=== PATIENT | female | born 1990 | race Caucasian/White ===

== ENCOUNTER 2016-08-28 06:01 | Inpatient (IN) | payer MEDICAID ==
[~2016-08-28] VITALS: Ht 165.1 cm; Wt 78.5 kg
[2016-08-28] VITALS (15 sets, daily range): BP systolic 107–122; RESP 16–20; TEMP 97.3–98.1; Ht 165.1 cm; Wt 78.5 kg
[~2016-08-28 06:01] MED LIST: CEFAZOLIN (LD/OB) 100 ML IV ONE; FAMOTIDINE 20 MG INJ IV ONE; LIDOCAINE 1% BUFFERED 1 ML SYR INTRADERM PRN; METOCLOPRAMIDE 10 MG/2 ML VIAL IV PUSH ONE
[2016-08-28] MEDS ORDERED: [UNRECOGNIZED DRUG - REMARK] XX SCH (06:35)
[2016-08-28] MEDS ORDERED: ONDANSETRON 4 MG VIAL IV PRN ×3 (07:10→08:10)
[2016-08-28] MEDS ORDERED: BUTORPHANOL 1 MG/ML VIAL IV PRN (07:10)
[2016-08-28] MEDS ORDERED: NALOXONE 0.4 MG/ML AMP IV PRN (07:10)
[2016-08-28] MEDS ORDERED: MEPERIDINE 25 MG/ML IV PRN (07:10)
[2016-08-28] MEDS ORDERED: DIPHENHYDRAMINE 50 MG/ML VIAL IV PRN (07:10)
[2016-08-28] MEDS ORDERED: SALINE FLUSH 10 ML FLUSH PRN (07:10)
[2016-08-28] MEDS ORDERED: MORPHINE 2 MG/ML SYR IV PRN ×2 (07:10)
[2016-08-28] MEDS ORDERED: MORPHINE 4 MG/ML SYR IV PRN ×2 (07:10)
[2016-08-28] MEDS ORDERED: OXYCODONE 5 MG TAB PO PRN (07:10)
[2016-08-28] MEDS ORDERED: PROMETHAZINE 25 MG/ML VIAL IV PRN (07:10)
[2016-08-28] MEDS ORDERED: DILAUDID 1 MG/ML AMP IV PRN (07:10)
[2016-08-28] MEDS ORDERED: OXYTOCIN 10 UNITS/ML VIAL IV ONE (07:46)
[2016-08-28] MEDS ORDERED: PHENYLEPHRINE 10 MG/ML VIAL IV ONE (07:46)
[2016-08-28] MEDS: SALINE FLUSH 10 ML FLUSH SCH ×2 (08:00→20:00)
[2016-08-28] MEDS ORDERED: MEASLES,MUMPS,RUBELLA VAC SUBQ.VACC ONE (08:10)
[2016-08-28] MEDS ORDERED: OXYTOCIN 15 UNITS/250 ML NS 250 ML IV SCH (08:10)
[2016-08-28] MEDS ORDERED: LACT RINGERS 1,000 ML IV SCH (08:10)
[2016-08-28] MEDS ORDERED: MAG HYDROX 30 ML UDC PO PRN (08:10)
[2016-08-28] MEDS ORDERED: TDaP 0.5 ML VIAL IM.VACC ONE (08:10)
[2016-08-28] MEDS: DOCUSATE SOD 100 MG CAP PO SCH (16:02)
[2016-08-28] MEDS: KETOROLAC 30 MG/ML VIAL IV SCH ×3 (16:02→23:13)
[2016-08-28] MEDS: LACT RINGERS 1,000 ML IV SCH ×2 (16:02→23:14)
[2016-08-28] MEDS: CEFAZOLIN 2,000 MG in SODIUM CHLORIDE 0.9% 100 ML IV SCH ×2 (16:09→23:13)
[2016-08-29 02:02] VITALS: BP_SYST 106; RESP 18; TEMP 98.1
[2016-08-29 05:15] VITALS: BP_SYST 92; RESP 16; TEMP 98.1
[2016-08-29] MEDS: KETOROLAC 30 MG/ML VIAL IV SCH (05:16)
[2016-08-29] MEDS: LACT RINGERS 1,000 ML IV SCH (05:55)
[2016-08-29] MEDS: SODIUM CHLORIDE 0.9% FLUSH BAG 500 ML IV SCH (06:00)
[2016-08-29] MEDS: SALINE FLUSH 10 ML FLUSH SCH ×2 (08:00→20:00)
[2016-08-29] MEDS ORDERED: OXYCODONE/APAP 5/325 TAB PO PRN (08:10)
[2016-08-29 09:22] VITALS: BP_SYST 105; RESP 18; TEMP 98.2
[2016-08-29] MEDS: DOCUSATE SOD 100 MG CAP PO SCH (09:45)
[2016-08-29] MEDS ORDERED: Ibuprofen 600 MG TAB PO SCH ×2 (12:00→18:00)
[2016-08-29] MEDS ORDERED: KETOROLAC 30 MG/ML VIAL IV ONE (12:00)
[2016-08-29] MEDS: Ibuprofen 600 MG TAB PO SCH ×3 (12:27→23:40)
[2016-08-29 13:13] VITALS: BP_SYST 112; RESP 18; TEMP 98.1
[2016-08-29 17:53] VITALS: BP_SYST 115; RESP 18; TEMP 98
[2016-08-30 05:10] VITALS: BP_SYST 119; RESP 16; TEMP 98.1
[2016-08-30] MEDS: SODIUM CHLORIDE 0.9% FLUSH BAG 500 ML IV SCH (05:26)
[2016-08-30] MEDS: Ibuprofen 600 MG TAB PO SCH ×2 (05:26→11:37)
[2016-08-30] MEDS: SALINE FLUSH 10 ML FLUSH SCH (07:27)
[2016-08-30] MEDS: DOCUSATE SOD 100 MG CAP PO SCH (08:25)
[2016-08-30 09:03] VITALS: BP_SYST 115; TEMP 98
[2016-08-30 09:04] VITALS: RESP 18; TEMP 97.6
[2016-08-30] MEDS ORDERED: TDaP 0.5 ML VIAL IM.VACC ONE (10:20)
[2016-08-30] MEDS ORDERED: MEASLES,MUMPS,RUBELLA VAC SUBQ.VACC ONE (10:20)
[2016-08-30 12:11] VITALS: BP_SYST 115; RESP 18; TEMP 97.6
== END 2016-08-30 13:00 | disposition home or self-care (01) | DRG 766 ==
LOC: LD 06:01 → OB 10:29
PROVIDERS: ADMIT Obstetrics & Gynecology; ATTEND Obstetrics & Gynecology
PROC: 10D00Z1 Extraction of Products of Conception, Low, Open Approach (ICD-10-PCS; principal; 2016-08-28)
PROC: 0UL70CZ Occlusion of Bilateral Fallopian Tubes with Extraluminal Device, Open Approach (ICD-10-PCS; 2016-08-28)
DX: O34.211 Maternal care for low transverse scar from previous cesarean delivery (principal); Z37.0 Single live birth; Z3A.39 39 weeks gestation of pregnancy
CPT/HCPCS: 82803; 85025